=== PATIENT | male | born 1970 | race Asian ===

== ENCOUNTER 2023-02-10 08:51 | Outpatient (AMB) | payer OTHER, SELFPAY ==
--- NOTE | 2023-02-10 08:57 | A.OFFVIS_ITS ---
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 Messer who was accompanied by his significant other at today's visit. He has a past medical history of herpes and mixed hyperlipidemia. He presents to the office today as a new patient for low libido and erectile dysfunction. In discussion with the patient today reports to be doing and feeling well. He reports noting a decrease in libido over the last several years of his life. He reports to be going to therapy with his significant other to further assess if it is psychologically related to his low libido and erectile dysfunction. When asked he does report to have morning erections at times. He reports to be having issues with obtaining and maintaining erections. He states sometimes he is able to obtain an erection however there is no consistency to when he is able to. He reports having had annual blood work with his PCP at which time he was noted to have elevated cholesterol and has been working on lifestyle modifications to assist. He reports to be eating healthier and attempting to exercise/increase his activity daily. He brings with him today labs he had with PCP. 11/18/22 Testosteron--392, free testosterone 7.65 and SHBG--33.0. When asked patient does report to be snoring however he has never had a workup for sleep apnea. He does report at times feeling fatigued upon wakening. He otherwise denies any smoking history or illicit drug use. He does report to be drinking caffeine and tea throughout the day. He otherwise denies any urinary issues or concerns at this time. He denies urinary urgency, urinary frequency, incontinence, nocturia, hematuria, dysuria, foul smelling urine, changes to urinary stream, flank pain, fever, and or chills. When asked patient reports to be following up with PSAs in [place] is with PCP. He is happy with his current voiding parameters. [facility] Medical History (Updated 02/10/23 @ 19:53 by JEANMARIE Hamm) Erectile dysfunction Fasting hyperglycemia Mixed hyperlipidemia Review of Systems Const Reports as per HPI Eyes Reports no additional complaints ENT Reports no additional complaints Card Reports no additional complaints Resp Reports no additional complaints GI Reports no additional complaints Reports as per HPI Musc Reports no additional complaints Neuro Reports no additional complaints Psych Reports no additional complaints Endo Reports no additional complaints Issac/Lymph Reports no additional complaints Aller/Immun Reports as per HPI Physical Exam Const General: cooperative, healthy appearing, comfortable, no acute distress, well developed, alert and awake Orientation/consciousness: patient oriented x3 HEENT Head: Yes normal to inspection, Yes normocephalic and Yes atraumatic Ears: hearing grossly normal bilaterally Eyes General: appearance normal, both eyes and all related structures Neck Neck: Yes normal visual inspection and Yes trachea midline Chest Chest palpation & inspection: normal inspection of the chest Resp Effort & Inspection: normal respiratory effort and able to speak in complete sentences Cardio Rate: regular rate GI Inspection: Yes normal to inspection General: Yes no CVA tenderness Back/Spine/Pelvis Back: no CVA tenderness Skin General skin exam: no rashes or lesions noted Neuro General: patient oriented x3 Extrem General: Yes normal to inspection Psych Appearance: grossly normal and well kempt Mental Status: mental status grossly normal Speech and movement: Normal speech and movement present and Clear speech present Affect: normal affect Attitude: cooperative Thought process: Normal thought process present Thought content: Normal thought content present Insight: Good insight present (Psych) Judgement: Good judgement present (Psych) Results AMB Urinalysis, Automated UA Leukoctes 0 Mouna/uL Last Edit by Mandeep Pan on 02/10/23 09:12 UA Nitrite Last Edit by Mandeep Pan on 02/10/23 09:12 UA Urobilinogen 0.2 mg/dL Last Edit by Mandeep Pan on 02/10/23 09:12 UA Protein 15 mg/dL Last Edit by Mandeep Pan on 02/10/23 09:12 UA pH 6.0 Last Edit by Mandeep Pan on 02/10/23 09:12 UA Blood 0 Abe/uL Last Edit by Jaxonjessieivon Castrorohini on 02/10/23 09:12 UA Specific [place] 1.025 Last Edit by Jaxondominik Gloriarohini on 02/10/23 09:12 UA Ketone Last Edit by Jaxondominik Gloriarohini on 02/10/23 09:12 UA Bilirubin 0 mg/dL Last Edit by Jaxondominik Gloriarohini on 02/10/23 09:12 UA Glucose 0 mg/dL Last Edit by Jaxondominik Gloriarohini on 02/10/23 09:12 Results Reviewed Results Reviewed: Laboratory Last Values Urine pH (Auto) 6.0 02/10/23 08:58 Specific [place] (Auto) 1.025 02/10/23 08:58 Urine Protein (Auto) 15 mg/dL 02/10/23 08:58 Glucose (UA)(Auto) 0 mg/dL 02/10/23 08:58 Urine Blood (Auto) 0 Abe/uL 02/10/23 08:58 Urine Bilirubin (Auto) 0 mg/dL 02/10/23 08:58 Urine Urobilinogen (Auto) 0.2 mg/dL 02/10/23 08:58 Leukocyte Esterase (Auto) 0 Mouna/uL 02/10/23 08:58 Assessment & Plan Assessment & Plan (1) Snoring: Code(s): R06.83 - Snoring (2) Low libido: Code(s): R68.82 - Decreased libido (3) Erectile dysfunction: Code(s): N52.9 - Male erectile dysfunction, unspecified Plan In office urinalysis results reviewed with the patient and his significant other today; as noted above. Testosterone, free testosterone and SHBG appear within normal limits; as noted above Discussed at length lifestyle modifications to assist with low libido and erectile dysfunction the patient is experiencing; such as general exercise, pelvic floor exercises, healthy diet, and adequate sleep/good sleeping habits. Discuss trial low-dose 5 mg Cialis with p.r.n. on demand 1 hour prior to sexual activity. Discussed at length potential causes for low libido as well as erectile dysfunction. Patient reports to be happy with current voiding parameters. Discussed at length treatment options for erectile dysfunction. Will refer to sleep medicine to further assess for sleep apnea as patients significant other reports patient snores and patient reports at times fatigue upon wakening. Follow-up in 3 months; or sooner with any issues, concerns, and or questions. Orders: Orders AMB Urinalysis Automated Today Z13.9 - Encounter for screening, unspecified Referrals Sleep Medicine Referral R06.83 - Snoring Medications: New tadalafil (Cialis) [id number] [facility] [id number] 5 mg PO DAILY 90 days 90 tabs 3RF tadalafil (Cialis) administer approximately 30min before sexual activity; do not use more than 1 dose per 24hrs [id number] [facility] [id number] 20 mg PO DAILY PRN 20 tabs 3RF sexual activity Patient Instructions: The patient had an opportunity to ask questions regarding the treatment plan. All questions were answered. Physical exam, labs, and imaging were discussed and reviewed in detail. As well as risks, benefits, and discussion of treatment choices. No major barriers to understanding were identified. The patient expressed understanding and agreement with the above treatment plan. The patient was made aware they should contact our office by phone for worsening of their current condition, the appearance of new symptoms, or with any questions or concerns. Compliance is encouraged with any medications and follow up testing that is ordered. It is a privilege to be allowed the opportunity to participate in? your urological care.? Again, if you have any questions or concerns If you have any questions or concerns please do not hesitate to contact me. The office is [phone]. This note is constructed using voice recognition software. While every effort has been made to ensure accuracy chief medical officer errors may have been included. Yours sincerely, ENRIQUE Hamm Coding Level of Care Code New Pt Level 4 (03416) Diagnoses Snoring R06.83 Low libido R68.82 Erectile dysfunction N52.9
== END 2023-02-10 09:51 | disposition home or self-care (01) ==
PROVIDERS: PCP Internal Medicine; Referring Provider Internal Medicine; Visit Provider Nurse Practitioner Family
DX: R06.83 Snoring (principal); R68.82 Decreased libido; N52.9 Male erectile dysfunction, unspecified; Z13.9 Encounter for screening, unspecified
CPT/HCPCS: 99204

== ENCOUNTER → 2023-02-10 08:51 | Outpatient (BNVA) | payer OTHER, SELFPAY | PROVIDERS: PCP Internal Medicine; Referring Provider Internal Medicine; Visit Provider Nurse Practitioner Family | DX: N52.9 Male erectile dysfunction, unspecified (principal); R06.83 Snoring; R68.82 Decreased libido | CPT/HCPCS: 81003 ==

== ENCOUNTER 2023-04-22 08:05 | Outpatient (AMB) | payer OTHER, SELFPAY ==
--- NOTE | 2023-04-22 08:08 | MHC.OFFVIS ---
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 Pt report loud snoring, and hx of deviated septum. He had a septoplast done in 1995, but still snores loudly. Pt reports witnessed disrupted breathing and daytime sleepiness. Sleep questionnaire: Have you ever been diagnosed with a sleep disorder? No. Have you ever had a sleep study in the past? No. Have you ever been treated for a sleep disorder? No. Do you take medications for a sleep disorder? No. Do you snore? Yes. Do you wake up gasping at night? No Do you have episodes of apneas? No. If yes, are they witnessed? No. Do you have episodes of nocturnal chest pain or dyspnea? No. Do you have difficulty initiating sleep? No. Do you have difficulty maintaining sleep? No. Do you wake up tired? No. Do you have headaches upon awakening? No. Do you wake up with dry mouth or throat? No. He puts tape on his lip. Do you have GERD? Yes, occasionally. Do you have nocturia? No. Do you have nocturnal leg cramps? No. Do you have symptoms of restless legs? No. Do you act out your dreams? No. Sleep hygiene questionnaire: What is your usual sleep routine? Usual bedtime is at 2 am Usual wake up time is at 8 am. Do you take naps? No. Is your sleep environment cool, dark, and quiet? Yes. Do you exercise? Walking. Do you take caffeine or other stimulants? Coffee in the morning, green tea daily. Do you use electronics in bed? Yes, sometimes. What is your work schedule? 9 am to 6 pm. Hypersomnolence questionnaire: Do you have daytime tiredness or fatigue? Yes, occasionally. Do you easily fall asleep when inactive? No. Have you ever had episodes of sudden weakness? No. Have you ever had episodes of sudden weakness associated with strong emotions? No. PFSH Medical History (Updated 04/22/23 @ 08:33 by Basilia Santos CNP) Mixed hyperlipidemia Fasting hyperglycemia Erectile dysfunction Surgical History (Updated 04/22/23 @ 08:13 by Marissa Galdamez CMA) History of nasal surgery Family History (Updated 04/22/23 @ 08:15 by Marissa Galdamez CMA) Father Colon cancer Heart disease Mother Diabetes Social History (Updated 04/22/23 @ 08:16 by Marissa Galdamez CMA) Alcohol intake: current Alcohol intake frequency: holidays/special occasions only Patient Tobacco Use Status: Never used Tobacco Use of substances other than those prescribed or required for medical reasons: No Review of Systems Const All systems reviewed & are unremarkable except as noted in HPI and below ENT Reports Normal hearing present Neuro Reports Normal hearing present Physical Exam Vital Signs: Last Vital Signs Pulse 76 04/22/23 08:16 BP 112/66 04/22/23 08:16 Pulse Ox 96 04/22/23 08:16 Oxygen Delivery Method Room Air 04/22/23 08:16 BMI result Body Mass Index 26.6 Const General: cooperative Nutritional Appearance: overweight Orientation/consciousness: patient oriented x3 HEENT Throat: Yes other (mallampati grade 2) Neck Neck: Yes full ROM and Yes supple Resp Effort & Inspection: normal respiratory effort and able to speak in complete sentences Neuro General: patient oriented x3 and gait normal Cranial nerves: Yes Bilaterally intact EOM present, Yes Normal facial strength present, Yes Midline tongue present, Yes Symmetric palate elevation present, Yes Normal hearing present, Yes Ability to bilaterally rotate head present and Yes Ability to bilaterally elevate shoulders present Cognition (Neuro): normal cognition Gait exam (Neuro): Normal gait present Motor exam (neuro): 5/5 motor strength present throughout, Pronator motor function not present and no tremor noted Psych Appearance: grossly normal Mental Status: mental status grossly normal Speech and movement: Normal speech and movement present Affect: normal affect Attitude: cooperative Assessment & Plan Assessment & Plan (1) Daytime sleepiness: Code(s): R40.0 - Somnolence (2) Snoring: Code(s): R06.83 - Snoring Plan Pt is advised to undergo home sleep study to assess for sleep apnea. Will f/u with pt after study to discuss results and appropriate treatment options. Sleep hygiene education provided. Pt to call with any worsening concerns or questions. Orders: Orders RT home sleep study 04/22/23 R06.83 - Snoring, R40.0 - Somnolence Coding Level of Care Code New Pt Level 3 (27197) Diagnoses Daytime sleepiness R40.0 Snoring R06.83
[2023-04-22 08:16] VITALS: BP 112/66; PULSE 76; O2SAT 96; BMI 26.6
== END 2023-04-22 08:41 | disposition home or self-care (01) ==
PROVIDERS: PCP Internal Medicine; Visit Provider Nurse Practitioner Family
DX: R40.0 Somnolence (principal); R06.83 Snoring
CPT/HCPCS: 99203

== ENCOUNTER → 2023-04-22 08:05 | Outpatient (BNVA) | payer OTHER, SELFPAY | PROVIDERS: PCP Internal Medicine; Visit Provider Nurse Practitioner Family ==

== ENCOUNTER 2023-05-14 08:32 | Outpatient (AMB) | payer OTHER, SELFPAY ==
--- NOTE | 2023-05-14 08:33 | MHC.OFFVIS ---
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 Messer. He has a past medical history of herpes and mixed hyperlipidemia. He presents to the office today for follow-up of his low libido and erectile dysfunction. Of note, patient was seen approximately 3 months ago at which time he was started on low-dose Cialis and as needed p.r.n. prior to sexual activity. In discussion with the patient today he reports noting somewhat improvement in libido and erections. He reports feeling morning erections are improving and feels he is able to maintain erections during sexual activity. He discusses following up with his PCP regarding elevated LDL and HDL levels. He discusses over the last 3 months he has been eating healthier and attempting to incorporate exercises into his daily routine. He discusses his recent purposal to he is caro on 04/26 at 11:11pm in [facility] [employer] [facility]. Previous workup has included 11/18/22 Testosterone--392, free testosterone 7.65 and SHBG--33.0. Patient reports to be following up regarding snoring for further assessment evaluation of sleep apnea. He does report at times feeling fatigued upon wakening. He otherwise denies any smoking history or illicit drug use. He does report to be drinking caffeine and tea throughout the day. He otherwise denies any urinary issues or concerns at this time. He denies urinary urgency, urinary frequency, incontinence, nocturia, hematuria, dysuria, foul smelling urine, changes to urinary stream, flank pain, fever, and or chills. He is happy with his current voiding parameters. He follows up with his PSAs and BERTHA is with PCP per patient. [facility] Medical History Mixed hyperlipidemia Fasting hyperglycemia Erectile dysfunction Surgical History History of nasal surgery Family History Father Colon cancer Heart disease Mother Diabetes Social History Alcohol intake: current Alcohol intake frequency: holidays/special occasions only Patient Tobacco Use Status: Never used Tobacco Review of Systems Const Reports as per HPI Eyes Reports no additional complaints ENT Reports no additional complaints Card Reports no additional complaints Resp Reports no additional complaints GI Reports no additional complaints Reports as per HPI Musc Reports no additional complaints Neuro Reports no additional complaints Psych Reports no additional complaints Endo Reports no additional complaints Issac/Lymph Reports no additional complaints Aller/Immun Reports as per HPI Physical Exam Const General: cooperative, healthy appearing, comfortable, no acute distress, well developed, alert and awake Orientation/consciousness: patient oriented x3 HEENT Head: Yes normal to inspection, Yes normocephalic and Yes atraumatic Ears: hearing grossly normal bilaterally Eyes General: appearance normal, both eyes and all related structures Neck Neck: Yes normal visual inspection and Yes trachea midline Chest Chest palpation & inspection: normal inspection of the chest Resp Effort & Inspection: normal respiratory effort and able to speak in complete sentences Cardio Rate: regular rate GI Inspection: Yes normal to inspection General: Yes no CVA tenderness Back/Spine/Pelvis Back: no CVA tenderness Skin General skin exam: no rashes or lesions noted Neuro General: patient oriented x3 Extrem General: Yes normal to inspection Psych Appearance: grossly normal and well kempt Mental Status: mental status grossly normal Speech and movement: Normal speech and movement present and Clear speech present Affect: normal affect Attitude: cooperative Thought process: Normal thought process present Thought content: Normal thought content present Insight: Good insight present (Psych) Judgement: Good judgement present (Psych) Results AMB Urinalysis, Automated UA Leukoctes 0 Mouna/uL Last Edit by Mandeep Pan on 05/14/23 08:48 UA Nitrite Negative Last Edit by Mandeep Pan on 05/14/23 08:48 UA Urobilinogen 0.2 mg/dL Last Edit by Mandeep Pan on 05/14/23 08:48 UA Protein 0 mg/dL Last Edit by Mandeep Pan on 05/14/23 08:48 UA pH 6.0 Last Edit by Mandeep Pan on 05/14/23 08:48 UA Blood 10 Abe/uL Last Edit by Mandeep Pan on 05/14/23 08:48 UA Specific [place] 1.025 Last Edit by Mandeep Pan on 05/14/23 08:48 UA Ketone Negative Last Edit by Mandeep Pan on 05/14/23 08:48 UA Bilirubin 0 mg/dL Last Edit by Mandeep Pan on 05/14/23 08:48 UA Glucose 0 mg/dL Last Edit by Mandeep Pan on 05/14/23 08:48 Results Reviewed Results Reviewed: Laboratory Last Values Urine pH (Auto) 6.0 05/14/23 08:37 Specific [place] (Auto) 1.025 05/14/23 08:37 Urine Protein (Auto) 0 mg/dL 05/14/23 08:37 Glucose (UA)(Auto) 0 mg/dL 05/14/23 08:37 Urine Ketones (Auto) Negative 05/14/23 08:37 Urine Blood (Auto) 10 Abe/uL 05/14/23 08:37 Urine Nitrite (Auto) Negative 05/14/23 08:37 Urine Bilirubin (Auto) 0 mg/dL 05/14/23 08:37 Urine Urobilinogen (Auto) 0.2 mg/dL 05/14/23 08:37 Leukocyte Esterase (Auto) 0 Mouna/uL 05/14/23 08:37 Assessment & Plan Assessment & Plan (1) Erectile dysfunction: Code(s): N52.9 - Male erectile dysfunction, unspecified Plan In office urinalysis results reviewed with the patient today. Continue with 5 mg of Cialis daily as well as p.r.n. dosing prior to sexual activity. Will obtain redraw of testosterone free and total in 3 months. Continue to follow-up as planned for sleep study Discussed at length lifestyle modifications to assist with ED Discussed possible vacuum pump and penile ring; information provided Patient denies any bothersome urinary issues He is happy with current voiding parameters Follow-up in 3 months with lab to be completed prior; or sooner with any issues, concerns, and or questions Orders: Orders AMB Urinalysis Automated Today Z13.9 - Encounter for screening, unspecified Testosterone, Free/Total 3 Months N52.9 - Male erectile dysfunction, unspecified, R68.82 - Decreased libido Medications: Refilled tadalafil (Cialis) administer approximately 30min before sexual activity; do not use more than 1 dose per 24hrs [id number] [facility] [id number] Member [id number] 20 mg PO DAILY PRN 20 tabs 3RF sexual activity Patient Instructions: The patient had an opportunity to ask questions regarding the treatment plan. All questions were answered. Physical exam, labs, and imaging were discussed and reviewed in detail. As well as risks, benefits, and discussion of treatment choices. No major barriers to understanding were identified. The patient expressed understanding and agreement with the above treatment plan. The patient was made aware they should contact our office by phone for worsening of their current condition, the appearance of new symptoms, or with any questions or concerns. Compliance is encouraged with any medications and follow up testing that is ordered. It is a privilege to be allowed the opportunity to participate in? your urological care.? Again, if you have any questions or concerns If you have any questions or concerns please do not hesitate to contact me. The office is [phone]. This note is constructed using voice recognition software. While every effort has been made to ensure accuracy supervisor photoengraving errors may have been included. Yours sincerely, ENRIQUE Hamm Coding Level of Care Code Est Pt Level 3 (28828) Diagnoses Erectile dysfunction N52.9
== END 2023-05-14 09:26 | disposition home or self-care (01) ==
PROVIDERS: PCP Internal Medicine; Visit Provider Nurse Practitioner Family
DX: N52.9 Male erectile dysfunction, unspecified (principal); Z13.9 Encounter for screening, unspecified
CPT/HCPCS: 99213

== ENCOUNTER → 2023-05-14 08:32 | Outpatient (BNVA) | payer OTHER, SELFPAY | PROVIDERS: PCP Internal Medicine; Visit Provider Nurse Practitioner Family | DX: N52.9 Male erectile dysfunction, unspecified (principal); Z79.899 Other long term (current) drug therapy | CPT/HCPCS: 81003 ==

== ENCOUNTER → 2023-08-12 11:04 | Outpatient (REF) | payer OTHER, SELFPAY | LOC: HO.SL 11:04 | PROVIDERS: Visit Provider Nurse Practitioner Family | DX: G47.33 Obstructive sleep apnea (adult) (pediatric) (principal); R40.0 Somnolence; R06.83 Snoring | CPT/HCPCS: 95806 ==

== ENCOUNTER → 2023-08-12 11:23 | Outpatient (BNV) | payer OTHER, SELFPAY | PROVIDERS: Visit Provider Psychiatry & Neurology Neurology | DX: G47.33 Obstructive sleep apnea (adult) (pediatric) (principal) | CPT/HCPCS: 95806 ==

== ENCOUNTER 2023-09-11 14:09 | Outpatient (AMB) | payer OTHER, SELFPAY ==
--- NOTE | 2023-09-11 14:16 | A.OFFVIS_ITS ---
Intake Intake Visit Reasons: 3m/testo(set) Intake Note: Patient presents today for a follow up on TESTO Meds- Tadalafil Allergies to Antibiotic- Sulfa Blood Thinner- None Route Driver Coin Machines Required: No Accompanied by: Self / Same As Patient Allergies Sulfa Drugs Allergy (Uncoded 09/11/23 21:51) unknown vicodan Allergy (Uncoded 09/11/23 21:51) Unknown Medication List - Last Reconciled 09/11/23 by MARYCHUY Hamm- tadalafil (Cialis) 5 mg PO DAILY 90 days tadalafil (Cialis) 20 mg PO DAILY PRN valacyclovir 1,000 mg PO BID HPI HPI Comments History of Present Illness Details Breezy is a very pleasant 53-year-old male patient of Dr. Messer. He has a past medical history of herpes and mixed hyperlipidemia. He presents to the office today for follow-up of his low libido and erectile dysfunction. Recent labs reviewed with the patient today as noted and trended below. Testosterone: 12/06--392, 08/09--401 Free testosterone 12/06--7.65, 08/09--8.60 SHGB 12/06--33.0, 08/09--26.9 In discussion with the patient today he reports noting somewhat improvement in libido and erections. He reports feeling morning erections are improving and feels he is able to maintain erections during sexual activity. He discusses attempting to increase his daily activity and eating healthier. However he does struggle with getting adequate sleep. He discusses his fiancee and him undergoing therapy together and feels this has also been helpful. He otherwise denies any bothersome urinary issues. He denies urinary urgency, urinary frequency, incontinence, nocturia, hematuria, dysuria, foul smelling urine, changes to urinary stream, flank pain, fever, and or chills. He is happy with his current voiding parameters. He follows up with his PSAs and BERTHA is with PCP per patient. He discusses having had sleep study and will be following up for CPAP as he has been diagnosed with sleep apnea. He otherwise offers no other issues or concerns at this time. COUNTS INCLUDE 234 BEDS AT THE [facility] Medical History Mixed hyperlipidemia Fasting hyperglycemia Erectile dysfunction Surgical History History of nasal surgery Family History Father Colon cancer Heart disease Mother Diabetes Social History Alcohol intake: current Alcohol intake frequency: holidays/special occasions only Patient Tobacco Use Status: Never used Tobacco Review of Systems Const Reports as per HPI Eyes Reports no additional complaints ENT Reports no additional complaints Card Reports no additional complaints Resp Reports no additional complaints GI Reports no additional complaints Reports as per HPI Musc Reports no additional complaints Neuro Reports no additional complaints Psych Reports no additional complaints Endo Reports no additional complaints Issac/Lymph Reports no additional complaints Aller/Immun Reports as per HPI Physical Exam Const General: cooperative, healthy appearing, comfortable, no acute distress, well developed, alert and awake Orientation/consciousness: patient oriented x3 HEENT Head: Yes normal to inspection, Yes normocephalic and Yes atraumatic Ears: hearing grossly normal bilaterally Eyes General: appearance normal, both eyes and all related structures Neck Neck: Yes normal visual inspection and Yes trachea midline Chest Chest palpation & inspection: normal inspection of the chest Resp Effort & Inspection: normal respiratory effort and able to speak in complete sentences Cardio Rate: regular rate GI Inspection: Yes normal to inspection General: Yes no CVA tenderness Back/Spine/Pelvis Back: no CVA tenderness Skin General skin exam: no rashes or lesions noted Neuro General: patient oriented x3 Extrem General: Yes normal to inspection Psych Appearance: grossly normal and well kempt Mental Status: mental status grossly normal Speech and movement: Normal speech and movement present and Clear speech present Affect: normal affect Attitude: cooperative Thought process: Normal thought process present Thought content: Normal thought content present Insight: Good insight present (Psych) Judgement: Good judgement present (Psych) Results AMB Urinalysis, Automated UA Leukoctes 0 Mouna/uL Last Edit by Dominique Camp CMA on 09/11/23 14 :27 UA Nitrite Negative [facility] on 09/11/23 14: 27 UA Urobilinogen 0.2 mg/dL Last Edit by Dominique Campveena Camp [facility] on 4 14:27 UA Protein 15 mg/dL Last Edit [facility] on 09/11/23 14:2 7 UA pH 6.0 Last Edit [facility] [place], [facility] on 09/11/23 14:27 UA Blood 0 Abe/uL Last Edit [facility], [facility] on 09/11/23 14:27 UA Specific [place] 1.025 Last Edit by Dominique Campveena Camp [facility] on 14:27 UA Ketone Negative Last Edit [facility] on 09/11/23 14:2 7 UA Bilirubin 0 mg/dL Last Edit [facility] [place] [facility] on 09/11/23 14: 27 UA Glucose 0 mg/dL Last Edit [facility], [facility] on 09/11/23 14:27 Results Reviewed Results Reviewed: Laboratory Last Values Urine pH (Auto) 6.0 09/11/23 14:26 Specific [place] (Auto) 1.025 09/11/23 14:26 Urine Protein (Auto) 15 mg/dL 09/11/23 14:26 Glucose (UA)(Auto) 0 mg/dL 09/11/23 14:26 Urine Ketones (Auto) Negative 09/11/23 14:26 Urine Blood (Auto) 0 Abe/uL 09/11/23 14:26 Urine Nitrite (Auto) Negative 09/11/23 14:26 Urine Bilirubin (Auto) 0 mg/dL 09/11/23 14:26 Urine Urobilinogen (Auto) 0.2 mg/dL 09/11/23 14:26 Leukocyte Esterase (Auto) 0 Mouna/uL 09/11/23 14:26 Assessment & Plan Assessment & Plan (1) Erectile dysfunction: Code(s): N52.9 - Male erectile dysfunction, unspecified Plan In office urinalysis results reviewed with the patient today. Continue with 5 mg of Cialis daily as well as p.r.n. dosing prior to sexual activity. Will obtain redraw of testosterone free and total in 6 months. Discussed importance of compliance with CPAP for sleep apnea in relation to ED and low libido as well as overall health and well-being. Discussed at length lifestyle modifications to assist with ED Discussed possible vacuum pump and penile ring; information provided Patient denies any bothersome urinary issues He is happy with current voiding parameters Follow-up in 6 months with lab to be completed prior; or sooner with any issues, concerns, and or questions Orders: Orders AMB Urinalysis Automated Today R33.9 - Retention of urine, unspecified Prostate Specific Antigen 6 Months N40.0 - Benign prostatic hyperplasia without lower urinary tract symptoms Testosterone, Free/Total 6 Months N52.9 - Male erectile dysfunction, unspecified, R68.82 - Decreased libido Medications: Refilled tadalafil (Cialis) [id number] [facility]33 Member [id number] 5 mg PO DAILY 90 tabs 3RF 90 days tadalafil (Cialis) administer approximately 30min before sexual activity; do not use more than 1 dose per 24hrs [id number] [facility]33 Member [id number] 20 mg PO DAILY PRN 20 tabs 3RF sexual activity Patient Instructions: The patient had an opportunity to ask questions regarding the treatment plan. All questions were answered. Physical exam, labs, and imaging were discussed and reviewed in detail. As well as risks, benefits, and discussion of treatment choices. No major barriers to understanding were identified. The patient expressed understanding and agreement with the above treatment plan. The patient was made aware they should contact our office by phone for worsening of their current condition, the appearance of new symptoms, or with any questions or concerns. Compliance is encouraged with any medications and follow up testing that is ordered. It is a privilege to be allowed the opportunity to participate in? your urological care.? Again, if you have any questions or concerns If you have any questions or concerns please do not hesitate to contact me. The office is [phone]. This note is constructed using voice recognition software. While every effort has been made to ensure accuracy linux unix system administrator errors may have been included. Yours sincerely, ENRIQUE Hamm Coding Level of Care Code Est Pt Level 4 (51076) Diagnoses Erectile dysfunction N52.9 Time Spent (min) 30
== END 2023-09-11 14:59 | disposition home or self-care (01) ==
PROVIDERS: PCP Internal Medicine; Visit Provider Nurse Practitioner Family
DX: N52.9 Male erectile dysfunction, unspecified (principal)
CPT/HCPCS: 99214

== ENCOUNTER → 2023-09-11 14:09 | Outpatient (BNVA) | payer OTHER, SELFPAY | PROVIDERS: PCP Internal Medicine; Visit Provider Nurse Practitioner Family | DX: N52.9 Male erectile dysfunction, unspecified (principal); R33.9 Retention of urine, unspecified | CPT/HCPCS: 81003 ==

== ENCOUNTER 2024-03-15 09:42 | Outpatient (REF) | payer OTHER, SELFPAY ==
[2024-03-15 11:05] LABS: Prostate Specific Antigen 1.73 ng/mL (<0.05-4.0)
[2024-03-19 16:33] LABS: Testosterone, Free 94.7 pg/mL (35.0-155.0); Testosterone, Total 469 ng/dL (250-1100)
== END 2024-03-15 09:43 | disposition home or self-care (01) ==
LOC: HO.LAB 09:42
PROVIDERS: PCP Internal Medicine; Visit Provider Nurse Practitioner Family
DX: N40.0 Benign prostatic hyperplasia without lower urinary tract symptoms (principal); R68.82 Decreased libido; N52.9 Male erectile dysfunction, unspecified; Z12.5 Encounter for screening for malignant neoplasm of prostate
CPT/HCPCS: 36415; 84153; 84402; 84403

== ENCOUNTER 2024-05-04 15:12 | Outpatient (AMB) | payer OTHER, SELFPAY ==
--- NOTE | 2024-05-04 15:13 | A.OFFVIS_ITS ---
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 Messer. He has a past medical history of herpes and mixed hyperlipidemia. He presents to the office today for follow-up of his low libido and erectile dysfunction. Recent labs reviewed with the patient today as noted and trended below. Testosterone: 12/06 392, 08/09 401, 03/09 469 Free testosterone 12/06 7.65, 08/09 8.60, 03/09 94.7 SHGB 12/06 33.0, 08/09 26.9 PSA: 03/09 1.7 In discussion with the patient today he reports noting improvement in libido and erections. He reports feeling morning erections are improving and feels he is able to maintain erections during sexual activity. He discusses attempting to increase his daily activity and eating healthier. He discusses walking 60-90 minutes multiple times per week. He otherwise denies any bothersome urinary issues. He denies urinary urgency, urinary frequency, incontinence, nocturia, hematuria, dysuria, foul smelling urine, changes to urinary stream, flank pain, fever, and or chills. He is happy with his current voiding parameters. He discusses having had sleep study and will be following up for CPAP as he has been diagnosed with sleep apnea. He otherwise offers no other issues or concerns at this time. [facility] Medical History Mixed hyperlipidemia Fasting hyperglycemia Erectile dysfunction Surgical History History of nasal surgery Family History Father Colon cancer Heart disease Mother Diabetes Social History Alcohol intake: current Alcohol intake frequency: holidays/special occasions only Patient Tobacco Use Status: Never used Tobacco Review of Systems Const Reports as per HPI Eyes Reports no additional complaints ENT Reports no additional complaints Card Reports no additional complaints Resp Reports no additional complaints GI Reports no additional complaints Reports as per HPI Musc Reports no additional complaints Neuro Reports no additional complaints Psych Reports no additional complaints Endo Reports no additional complaints Issac/Lymph Reports no additional complaints Aller/Immun Reports as per HPI Physical Exam Const General: cooperative, healthy appearing, comfortable, no acute distress, well developed, alert and awake Orientation/consciousness: patient oriented x3 HEENT Head: Yes normal to inspection, Yes normocephalic and Yes atraumatic Ears: hearing grossly normal bilaterally Eyes General: appearance normal, both eyes and all related structures Neck Neck: Yes normal visual inspection and Yes trachea midline Chest Chest palpation & inspection: normal inspection of the chest Resp Effort & Inspection: normal respiratory effort and able to speak in complete sentences Cardio Rate: regular rate GI Inspection: Yes normal to inspection General: Yes no CVA tenderness Back/Spine/Pelvis Back: no CVA tenderness Skin General skin exam: no rashes or lesions noted Neuro General: patient oriented x3 Extrem General: Yes normal to inspection Psych Appearance: grossly normal and well kempt Mental Status: mental status grossly normal Speech and movement: Normal speech and movement present and Clear speech present Affect: normal affect Attitude: cooperative Thought process: Normal thought process present Thought content: Normal thought content present Insight: Fair insight present (Psych) Judgement: Fair judgement present (Psych) Results AMB Urinalysis, Automated UA Leukoctes 0 Mouna/uL Last Edit by Mandeep Pan on 05/04/24 15:33 UA Nitrite Last Edit by Mandeep Pan on 05/04/24 15:33 UA Urobilinogen 0.2 mg/dL Last Edit by Mandeep Pan on 05/04/24 15:33 UA Protein 15 mg/dL Last Edit by Mandeep Pan on 05/04/24 15:33 UA pH 6.0 Last Edit by Mandeep Pan on 05/04/24 15:33 UA Blood 0 Abe/uL Last Edit by Mandeep Pan on 05/04/24 15:33 UA Specific [place] 1.025 Last Edit by Mandeep Pan on 05/04/24 15:33 UA Ketone Last Edit by Mandeep Pan on 05/04/24 15:33 UA Bilirubin 0 mg/dL Last Edit by Mandeep Pan on 05/04/24 15:33 UA Glucose 0 mg/dL Last Edit by Mandeep Pan on 05/04/24 15:33 Results Reviewed Results Reviewed: Laboratory Last Values Urine pH (Auto) 6.0 05/04/24 15:30 Specific [place] (Auto) 1.025 05/04/24 15:30 Urine Protein (Auto) 15 mg/dL 05/04/24 15:30 Glucose (UA)(Auto) 0 mg/dL 05/04/24 15:30 Urine Blood (Auto) 0 Abe/uL 05/04/24 15:30 Urine Bilirubin (Auto) 0 mg/dL 05/04/24 15:30 Urine Urobilinogen (Auto) 0.2 mg/dL 05/04/24 15:30 Leukocyte Esterase (Auto) 0 Mouna/uL 05/04/24 15:30 Assessment & Plan Assessment & Plan (1) Erectile dysfunction: Code(s): N52.9 - Male erectile dysfunction, unspecified Category: Medical Plan In office urinalysis results reviewed with the patient today. Continue with 5 mg of Cialis daily as well as p.r.n. dosing prior to sexual activity; refill provided. Discussed importance of compliance with CPAP for sleep apnea in relation to ED and low libido as well as overall health and well-being. Discussed at length lifestyle modifications to assist with ED Recent labs reviewed with the patient today; as noted above. Patient denies any bothersome urinary issues. He is happy with current voiding parameters. Follow-up in 6 months with lab to be completed prior; or sooner with any issues, concerns, and or questions. Orders: Orders AMB Urinalysis Automated Today Z13.9 - Encounter for screening, unspecified Medications: Refilled tadalafil (Cialis) administer approximately 30min before sexual activity; do not use more than 1 dose per 24hrs [id number] [id number] Member [id number] 20 mg PO DAILY PRN 20 tabs 3RF sexual activity Patient Instructions: The patient had an opportunity to ask questions regarding the treatment plan. All questions were answered. Physical exam, labs, and imaging were discussed and reviewed in detail. As well as risks, benefits, and discussion of treatment choices. No major barriers to understanding were identified. The patient expressed understanding and agreement with the above treatment plan. The patient was made aware they should contact our office by phone for worsening of their current condition, the appearance of new symptoms, or with any questions or concerns. Compliance is encouraged with any medications and follow up testing that is ordered. It is a privilege to be allowed the opportunity to participate in? your urological care.? Again, if you have any questions or concerns If you have any questions or concerns please do not hesitate to contact me. The office is [phone]. This note is constructed using voice recognition software. While every effort has been made to ensure accuracy home school teacher errors may have been included. Yours sincerely, ENRIQUE Hamm Coding Level of Care Code Est Pt Level 3 (13060) Diagnoses Erectile dysfunction N52.9
== END 2024-05-04 15:35 | disposition home or self-care (01) ==
PROVIDERS: PCP Internal Medicine; Visit Provider Nurse Practitioner Family
DX: Z13.9 Encounter for screening, unspecified (principal); N52.9 Male erectile dysfunction, unspecified
CPT/HCPCS: 99213

== ENCOUNTER → 2024-05-04 15:12 | Outpatient (BNVA) | payer OTHER, SELFPAY | PROVIDERS: PCP Internal Medicine; Visit Provider Nurse Practitioner Family | DX: N52.9 Male erectile dysfunction, unspecified (principal); Z79.899 Other long term (current) drug therapy | CPT/HCPCS: 81003 ==

== ENCOUNTER 2024-12-23 15:34 | Outpatient (AMB) | payer OTHER, SELFPAY ==
--- NOTE | 2024-12-23 15:36 | A.OFFVIS_ITS ---
Intake Visit Reasons: Follow up Intake Note: Patient presents today for follow up on: testosterone labs, low libido, and erectile dysfunction Testosterone: 378 Free Testosterone: 6.0 Meds- Tadalafil Allergies to Antibiotic- Sulfa Blood Thinner- None Visual Inspector Required: No Accompanied by: Self / Same As Patient Allergies Sulfa Drugs Allergy (Uncoded 05/04/24 15:38) unknown vicodan Allergy (Uncoded 05/04/24 15:38) Unknown Medication List - Last Reconciled 12/23/24 by MARYCHUY Hamm-ROSIE tadalafil (Cialis) 5 mg PO DAILY 90 days tadalafil (Cialis) 20 mg PO DAILY PRN valacyclovir 1,000 mg PO BID HPI Comments Details: Breezy is a very pleasant 54-year-old male patient of Dr. Messer. He has a past medical history of herpes, sleep apnea, and mixed hyperlipidemia. He presents to the office today for follow-up of his low libido and erectile dysfunction. Recent labs reviewed with the patient today as noted and trended below. Testosterone: 12/06 392, 08/09 401, 03/09 469, 01/07 378.9 Free testosterone 12/06 7.65, 08/09 8.60, 03/09 94.7 SHGB 12/06 33.0, 08/09 26.9 PSA: 03/09 1.7 In discussion with the patient today he reports noting improvement in libido and erections. He reports feeling morning erections are improving and feels he is a ble to maintain erections during sexual activity. He discusses attempting to increase his daily activity and eating healthier. He discusses walking multiple times per week. He otherwise denies any bothersome urinary issues. He denies urinary urgency, urinary frequency, incontinence, nocturia, hematuria, dysuria, foul smelling urine, changes to urinary stream, flank pain, fever, and or chills. He is happy with his current voiding parameters. He otherwise offers no other issues or concerns at this time. [facility] Medical History Mixed hyperlipidemia Fasting hyperglycemia Erectile dysfunction Surgical History History of nasal surgery Family History Father Colon cancer Heart disease Mother Diabetes Social History Alcohol intake: current Alcohol intake frequency: holidays/special occasions only Patient Tobacco Use Status: Never used Tobacco Review of Systems Const All systems reviewed & are unremarkable except as noted in HPI and below Physical Exam Const General: cooperative, healthy appearing, comfortable, no acute distress, well developed, alert and awake Orientation/consciousness: patient oriented x3 Limitations: no limitations HEENT Head: Yes normal to inspection, Yes normocephalic and Yes atraumatic Ears: hearing grossly normal bilaterally Eyes General: appearance normal, both eyes and all related structures Neck Neck: Yes normal visual inspection and Yes trachea midline Chest Chest palpation & inspection: normal inspection of the chest Resp Effort & Inspection: normal respiratory effort and able to speak in complete sentences Cardio Rate: regular rate GI Inspection: Yes normal to inspection General: Yes no CVA tenderness Back/Spine/Pelvis Back: no CVA tenderness Skin General skin exam: no rashes or lesions noted Neuro General: patient oriented x3 Extrem General: Yes normal to inspection Psych Appearance: grossly normal and well kempt Mental Status: mental status grossly normal Speech and movement: Normal speech and movement present and Clear speech present Affect: normal affect Attitude: cooperative Thought process: Normal thought process present Thought content: Normal thought content present Insight: Fair insight present (Psych) Judgement: Fair judgement present (Psych) Results AMB Urinalysis, Automated UA Leukoctes 15 Mouna/uL Last Edit by ANSON Woods on 12/23/24 16:06 UA Nitrite Last Edit by ANSON Woods on 12/23/24 16:06 UA Urobilinogen 0.2 mg/dL Last Edit by ANSON Woods on 12/23/24 16:0 6 UA Protein 15 mg/dL Last Edit by ANSON Woods on 12/23/24 16:06 UA pH 8.0 Last Edit by Mandeep Pan, [facility] on 12/23/24 16:06 UA Blood 0 Abe/uL Last Edit by Mandeep Pan, [facility] on 12/23/24 16:06 UA Specific [place] 1.010 Last Edit by Mandeep Pan, [facility] on 12/23/24 16: 06 UA Ketone Last Edit by Mandeep Pan, [facility] on 12/23/24 16:06 UA Bilirubin 0 mg/dL Last Edit by Mandeep Pan, [facility] on 12/23/24 16:06 UA Glucose 0 mg/dL Last Edit by Mandeep Pan, [facility] on 12/23/24 16:06 Results Reviewed Results Reviewed: Laboratory Last Values Urine pH (Auto) 8.0 12/23/24 16:04 Specific [place] (Auto) 1.010 12/23/24 16:04 Urine Protein (Auto) 15 mg/dL 12/23/24 16:04 Glucose (UA)(Auto) 0 mg/dL 12/23/24 16:04 Urine Blood (Auto) 0 Abe/uL 12/23/24 16:04 Urine Bilirubin (Auto) 0 mg/dL 12/23/24 16:04 Urine Urobilinogen (Auto) 0.2 mg/dL 12/23/24 16:04 Leukocyte Esterase (Auto) 15 Mouna/uL 12/23/24 16:04 Assessment & Plan Assessment & Plan (1) Erectile dysfunction: Code(s): N52.9 - Male erectile dysfunction, unspecified Category: Medical (2) Low libido: Code(s): R68.82 - Decreased libido Category: Medical Plan In office urinalysis results reviewed with the patient today. Continue with 5 mg of Cialis daily as well as p.r.n. dosing prior to sexual activity; refill provided. Discussed importance of compliance with CPAP for sleep apnea in relation to ED and low libido as well as overall health and well-being. Discussed at length lifestyle modifications to assist with ED Recent labs reviewed with the patient today; as noted above. Patient denies any bothersome urinary issues. He is happy with current voiding parameters. Will obtain PSA and testosterone in 6 months; we discussed importance of importance of obtaining labs 2 hours upon wakening for testosterone lab work. Follow-up in 6 months with lab to be completed prior; or sooner with any issues, concerns, and or questions. Orders: Orders Prostate Specific Antigen 6 Months N52.9 - Male erectile dysfunction, unspecified, R68.82 - Decreased libido AMB Urinalysis Automated Today Z13.9 - Encounter for screening, unspecified Testosterone, Total 6 Months C61 - Malignant neoplasm of prostate Medications: [id number] [id number] 5 mg PO DAILY 90 tabs 3RF 90 days tadalafil (Cialis) administer approximately 30min before sexual activity; do not use more than 1 dose per 24hrs [id number] [facility] [id number] 20 mg PO DAILY PRN 20 tabs 3RF sexual activity Patient Instructions: The patient had an opportunity to ask questions regarding the treatment plan. All questions were answered. Physical exam, labs, and imaging were discussed and reviewed in detail. As well as risks, benefits, and discussion of treatment choices. No major barriers to understanding were identified. The patient expressed understanding and agreement with the above treatment plan. The patient was made aware they should contact our office by phone for worsening of their current condition, the appearance of new symptoms, or with any questions or concerns. Compliance is encouraged with any medications and follow up testing that is ordered. It is a privilege to be allowed the opportunity to participate in? your urological care.? Again, if you have any questions or concerns If you have any questions or concerns please do not hesitate to contact me. The office is [phone]. This note is constructed using voice recognition software. While every effort has been made to ensure accuracy wellness consultant errors may have been included. Yours sincerely, ENRIQUE Hamm Coding Level of Care Code Est Pt Level 3 (63573) Diagnoses Erectile dysfunction N52.9 Low libido R68.82
--- OUTSIDE RECORDS SUMMARY | 2024-12-23 15:38 | XMS_ITS | Data Portability ---
Author Organization [place] [facility], autoContract Address [address] [place] [address] Assessment Encounter Date Assessment Date Assessment LastModified by Organization Details LastModified Time 06/25/2021 06/25/2021 I discussed this telehealth visit with patient and received their verbal consent to proceed with this visit over the audio and video platform [employer]. This visit was initiated by the patient. The current location of this patient is at his girlfriend's residence in [place]. A total of 20 minutes was spent at this visit of which at least 50% was spent in direct patient contact [email or web address] Not available 06/26/2021 00:55:49 05/31/2022 05/31/2022 I discussed this telehealth visit with patient and received their verbal consent to proceed with this visit over the audio and video platform [employer]. This visit was initiated by the patient. The current location of this patient is at their home. A total of 25 minutes was spent at this visit of which at least 50% was spent in direct patient contact [email or web address] Not available 05/31/2022 17:59:58 Plan of Treatment Reminders Order Date Submit Date Provider Last Modified By Organization Details Last Modified Time Details Appointments None recorded. Lab CMP, serum or plasma 2021 022 [facility], [address] [place], [address], 08:12:59 lipid panel, serum 2021 022 [facility], [address] [place], [address], 08:13:00 CBC w/ auto diff 2021 [facility], [address] [place], [address], 08:12:57 TSH, ultra-sensi tive, serum 2021 [facility], [address] [place], [address], 08:13:01 Referral None recorded. Procedures None recorded. Surgeries None recorded. Imaging None recorded. Medication Orders Paxlovid 300 mg (150 mg x 2)-100 mg tablets in a dose pack 2021 [facility][id number], [address] [place] [address], [address], 17:57:54 valacyclovi r 1 gram tablet 2021 [id number] [address] [place] [address], [address], 13:39:03 valacyclovi r 1 gram tablet 2021 [facility] [id number], [address], [place], [id number], 13:39:21 Patient TargetsNo targets recorded. Patient Instructions Encounter Date Encounter Id Patient Instructions Last Modified By Organization Details Last Modified Time 02/16/2021 [id number] Christian presents to day because his current sexual partner was recently diagnosed with HPV on a pap smear. He received the HPV vaccines. Has 1 more shot due. Insurance wouldn't cover the vaccine as prevention, but would cover it for a condition. He'd like it re-submitted for billing considered scientifically recommended for his Scientific evidence that the medication is effective for his condition. Basically since there's no test for HPV for men he should prevent with the vaccine. Maybe use an Exposure code. I will let coding and billing Irma know about dropping the vaccine claim under and exposure code. [email or web address] Not available 02/21/2021 18:33:13 06/25/2021 [id number] genital herpes: care instructions [email or web address] Not available 06/25/2021 13:39:01 Pt and girlfrien d here to discuss HSV-1. 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 Did not have an oral outbreak at the time but did have a cut on his lip from biting his lip. Girlfriend became symptomatic with painful genital lesions. Pt then also developed genital lesions. Pt went to on Day and got tested (lesions were swabbed) and came back positive for HSV-1 per pt. Both pt and girlfriend have completed a 10-day round of valacyclovir and are currently symptom-free. They have questions about recommendations about ongoing prescription for antiviral meds and when it is typically safe to resume sexual activity Had one cold sore flare up in a year. Usually occurs when he's sleep deprived or when his immune system is low or when he's stressed. A/P: 1) Had a long discussion with patient and girlfriend regarding clinical course of HSV, transmission and treatment 2) Discussed that intercourse is ok if neither partner is having genital lesions but that if one partner has lesions then they need to refrain from intercourse until lesions clear. We discussed condom use to help prevent this. 3) We discussed that suppression treatment may be necessary if he is having several flares ups of either genital or oral HSV yearly. Right now his last cold sore was one year ago and so far he has only had one genital outbreak. I have prescribed valacyclovir for him to take as needed with outbreaks. Rx sent to pharmacy in [place] where he is currently visiting his girlfriend and rx with refills sent to local pharmacy in [place] 4) All questions and concerns answered today. Return to clinic if sx do not begin to improve, worsen, new sx develop, or with any other concerns. 5) Pt agrees with plan and has no further questions Not available 06/26/2021 00:55:27 09/14/2021 [id number] Vaccine Consent [email or web address] Not available 09/14/2021 11:19:04 10/05/2021 [id number] 1. Christian presents for his annual wellness exam. Information made available on the portal regarding the importance of maintaining a healthy weight by eating a diet high in fruits, vegetables and lean proteins. Encouraged exercise at least 30-45 minutes daily for 4-7 days/week. Encouraged stress management and good sleep hygiene. Follow-up in 1 year for wellness exam. Follow-up sooner for any other concerns. 2. He is doing well and has no concerns. 3. He has significantly elevated triglycerides. Consider starting Tricor. [email or web address] Not available 10/06/2021 09:13:11 05/31/2022 [id number] + COVID19 on . Sx are mild but he is traveling for holidays and does not want to infect anyone where he is visiting and is interested in antiviral. Understands that he can have paxlovid rebound sx and will re-test before seeing others and plans to wear a mask for a full 10 days from sx onset. Follow updated CDC guidelines and monitor for new or worsening symptoms very closely: 1. If you test positive for COVID19, regardless of vaccination status: - Stay home for 5 days. -If you have no symptoms or your symptoms are resolving after 5 days, you can leave your house. -Continue to wear a mask around others for 5 additional days. If you have a fever, continue to stay home until your fever resolves. You must remain fever-free without the use of medications for at least 24 hours prior to re-entering public. 2. If you were exposed to someone with COVID19: If you: Have been boosted OR completed primary two-shot series of Pfizer or Moderna vaccine within the last 6 months OR completed the primary series of J&J vaccine within the last 2 months: -Wear a mask around others for 10 days. -Test on Day 5, if possible. PCR testing is best option, but rapid at home test is fine if that is only option. -If you develop symptoms, get a test and stay home. Assume you are positive until test is confirmed negative. If you: Completed primary 2-shot series of Pfizer or Moderna vaccine over 6 months ago and are not boosted OR completed the primary series of J&J over 2 months ago and are not boosted OR are unvaccinated: -Stay home for 5 days. After that, continue to wear a mask around others for 5 additional days. -If you can't quarantine, you must wear a mask for 10 days and be extremely careful. -Test on Day 5, if possible. -If you develop symptoms, get a test and stay home. Assume you are positive until test is confirmed negative. If you have had close contact with ongoing exposure (ie living with someone who is COVID+) and you are fully vaccinated with booster: -Get tested 5-7 days after their first exposure. A person with COVID19 is considered infectious starting 2 days before they develop symptoms, or 2 days before the date of positive test if they are asymptomatic. -Get tested again 5-7 days after the end of isolation for the infected person. -Wear a mask in public for 14 days following the end of isolation for the infected person, as there is still a chance that symptoms can develop up to two weeks after exposure. Call our office immediately with any new or worsening symptoms including SOB, chest discomfort, fever >101F. Treat symptoms with OTC medications. Stay very well hydrated and rest often. [email or web address] Not available 05/31/2022 18:01:03 Reason for Referral None Reported. Results Created Date Observation Date Name Description Value Unit Range Abnormal Flag Note LastModifiedBy Organization Detail LastModifiedTime 10/06/19 22 10/06/2021 CBC WITH DIFFE RENTI AL/PL ATELE T WBC 5.3 x10e3 /uL 3.4-10 .8 Not Available [facility] ([facility]) [address] [place], [address], 10/06/2021 08:12:57 10/06/19 22 10/06/2021 CBC WITH DIFFE RENTI AL/PL ATELE T RBC 4.97 x10e6 /uL 4.14-5 .80 Not Available [facility] ([facility]) [address] [place], [address], 10/06/2021 08:12:57 10/06/19 22 10/06/2021 CBC WITH DIFFE RENTI AL/PL ATELE T hemoglobin 15.7 g/dL 13.0-1 7.7 Not Available [facility] ([facility]) [address] [facility], [place], [address], 10/06/2021 08:12:57 10/06/19 22 10/06/2021 CBC WITH DIFFE RENTI AL/PL ATELE T hematocrit 45.5 % 37.5-5 1.0 Not Available [facility] ([facility]) [address] [facility], [place], [address], 10/06/2021 08:12:57 10/06/19 22 10/06/2021 CBC WITH DIFFE RENTI AL/PL ATELE T MCV 92 fL 79-97 Not Available [facility] ([facility]) [address] [facility], [place], [address], 10/06/2021 08:12:57 10/06/19 22 10/06/2021 CBC WITH DIFFE RENTI AL/PL ATELE T MCH 31.6 pg 26.6-3 3.0 Not Available [facility] ([facility]) [address] [place], [address], 10/06/2021 08:12:57 10/06/19 22 10/06/2021 CBC WITH DIFFE RENTI AL/PL ATELE T MCHC 34.5 g/dL 31.5-3 5.7 Not Available [facility] ([facility]) [address] [place], [address], 10/06/2021 08:12:57 10/06/19 22 10/06/2021 CBC WITH DIFFE RENTI AL/PL ATELE T RDW 12.9 % 11.6-1 5.4 Not Available [facility] ([facility]) [address] [place], [address], 10/06/2021 08:12:57 10/06/19 22 10/06/2021 CBC WITH DIFFE RENTI AL/PL ATELE T platelets 226 x10e3 /uL 150-45 0 Not Available [facility] ([facility]) [address], [place], [address], 10/06/2021 08:12:57 10/06/19 22 10/06/2021 CBC WITH DIFFE RENTI AL/PL ATELE T neutrophils 58 % not estab. Not Available [facility] ([facility]) [address] [facility], [place], [address], 10/06/2021 08:12:57 10/06/19 22 10/06/2021 CBC WITH DIFFE RENTI AL/PL ATELE T lymphs 29 % not estab. Not Available [facility] ([facility]) [address] [facility], [place], [address], 10/06/2021 08:12:57 10/06/19 22 10/06/2021 CBC WITH DIFFE RENTI AL/PL ATELE T monocytes 12 % not estab. Not Available [facility] ([facility]) [address] [facility], [place], [address], 10/06/2021 08:12:57 10/06/19 22 10/06/2021 CBC WITH DIFFE RENTI AL/PL ATELE T eos 1 % not estab. Not Available [facility] ([facility]) [address] [facility], [place], [address], 10/06/2021 08:12:57 10/06/1910/06/2021 CBC WITH DIFFE RENTI AL/PL ATELE T basos 0 % not estab. Not Available [facility] (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) [address] [facility], [place], [address], 10/06/2021 08:12:57 10/06/19 22 10/06/2021 CBC WITH DIFFE RENTI AL/PL ATELE T neutrophils (absolute) 3.0 x10e3 /uL 1.4-7. 0 Not Available [facility] ([facility]) [address] [place], [address], 10/06/2021 08:12:57 10/06/19 22 10/06/2021 CBC WITH DIFFE RENTI AL/PL ATELE T lymphs (absolute) 1.6 x10e3 /uL 0.7-3. 1 Not Available [facility] ([facility]) [address] [place], [address], 10/06/2021 08:12:57 10/06/19 22 10/06/2021 CBC WITH DIFFE RENTI AL/PL ATELE T monocytes(ab solute) 0.7 x10e3 /uL 0.1-0. 9 Not Available [facility] ([facility]) [address] [place], [address], 10/06/2021 08:12:57 10/06/19 22 10/06/2021 CBC WITH DIFFE RENTI AL/PL ATELE T eos (absolute) 0.1 x10e3 /uL 0.0-0. 4 Not Available [facility] ([facility]) [address] [place], [address], 10/06/2021 08:12:57 10/06/19 22 10/06/2021 CBC WITH DIFFE RENTI AL/PL ATELE T baso (absolute) 0.0 x10e3 /uL 0.0-0. 2 Not Available [facility] ([facility]) [address] [place], [address], 10/06/2021 08:12:57 10/06/19 22 10/06/2021 CBC WITH DIFFE RENTI AL/PL ATELE T immature granulocytes 0 % not estab. Not Available [facility] ([facility]) [address] [place], [address], 10/06/2021 08:12:57 10/06/19 22 10/06/2021 CBC WITH DIFFE RENTI AL/PL ATELE T immature grans (abs) 0.0 x10e3 /uL 0.0-0. 1 Not Available [facility] (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) [address] [facility], [place], [address], 10/06/2021 08:12:57 10/06/19 22 10/06/2021 CBC WITH DIFFE RENTI AL/PL ATELE T hematology comments: PROFESSOR OF FLORICULTURE Not Available [facility] ([facility]) [address] [facility], [place], [address], 10/06/2021 08:12:57 10/06/19 22 10/06/2021 COMP. METAB OLIC PANEL (14) glucose 106 mg/dL 65-99 above high normal Not Available [facility] ([facility]) [address] [facility], [place], [address], 10/06/2021 08:12:59 10/06/19 22 10/06/2021 COMP. METAB OLIC PANEL (14) BUN 16 mg/dL 6-24 Not Available [facility] ([facility]) [address] [facility], [place], [address], 10/06/2021 08:12:59 10/06/19 22 10/06/2021 COMP. METAB OLIC PANEL (14) creatinine 1.08 mg/dL 0.76-1 .27 Not Available [facility] ([facility]) [address] [facility], [place], [address], 10/06/2021 08:12:59 10/06/19 22 10/06/2021 COMP. METAB OLIC PANEL (14) eGFR 82 mL/mi n/1.7 3 >59 Not Available [facility] ([facility]) [address] [facility], [place], [address], 10/06/2021 08:12:59 10/06/19 22 10/06/2021 COMP. METAB OLIC PANEL (14) BUN/creatini ne ratio 15 9-20 Not Available [facility] ([facility]) [address] [facility], [place], [address], 10/06/2021 08:12:59 10/06/19 22 10/06/2021 COMP. METAB OLIC PANEL (14) sodium 142 mmol/ L 134-14 4 Not Available [facility] ([facility]) [address] [facility], [place], [address], 10/06/2021 08:12:59 10/06/19 22 10/06/2021 COMP. METAB OLIC PANEL (14) potassium 4.1 mmol/ L 3.5-5. 2 Not Available [facility] ([facility]) [address] [facility], [place], [address], 10/06/2021 08:12:59 10/06/19 22 10/06/2021 COMP. METAB OLIC PANEL (14) chloride 104 mmol/ L 96-106 Not Available [facility] ([facility]) [address] [facility], [place], [address], 10/06/2021 08:12:59 10/06/19 22 10/06/2021 COMP. METAB OLIC PANEL (14) carbon dioxide, total 24 mmol/ L 20-29 Not Available [facility] ([facility]) [address] [facility], [place], [address], 10/06/2021 08:12:59 10/06/19 22 10/06/2021 COMP. METAB OLIC PANEL (14) calcium 9.8 mg/dL 8.7-10 .2 Not Available [facility] ([facility]) [address] [facility], [place], [address], 10/06/2021 08:12:59 10/06/19 22 10/06/2021 COMP. METAB OLIC PANEL (14) protein, total 7.0 g/dL 6.0-8. 5 Not Available [facility] ([facility]) [address] [facility], [place], [address], 10/06/2021 08:12:59 10/06/19 22 10/06/2021 COMP. METAB OLIC PANEL (14) albumin 4.5 g/dL 3.8-4. 9 Not Available [facility] ([facility]) [address] [facility], [place], [address], 10/06/2021 08:12:59 10/06/19 22 10/06/2021 COMP. METAB OLIC PANEL (14) globulin, total 2.5 g/dL 1.5-4. 5 Not Available [facility] ([facility]) [address] [facility] [place], [address], 10/06/2021 08:12:59 10/06/19 22 10/06/2021 COMP. METAB OLIC PANEL (14) A/G ratio 1.8 1.2-2. 2 Not Available [facility] ([facility]) [address] [facility] [place], [address], 10/06/2021 08:12:59 10/06/19 22 10/06/2021 COMP. METAB OLIC PANEL (14) bilirubin, total 0.4 mg/dL 0.0-1. 2 Not Available [facility] ([facility]) [address] [facility] [place], [address], 10/06/2021 08:12:59 10/06/19 22 10/06/2021 COMP. METAB OLIC PANEL (14) alkaline phosphatase 78 IU/L 44-121 Not Available [facility] ([facility]) [address] [facility] [place], [address], 10/06/2021 08:12:59 10/06/19 22 10/06/2021 COMP. METAB OLIC PANEL (14) AST (SGOT) 25 IU/L 0-40 Not Available [facility] ([facility]) [address] [facility] [place], [address], 10/06/2021 08:12:59 10/06/19 22 10/06/2021 COMP. METAB OLIC PANEL (14) ALT (SGPT) 30 IU/L 0-44 Not Available [facility] ([facility]) [address] [facility] [place], [address], 10/06/2021 08:12:59 10/06/19 22 10/06/2021 LIPID PANEL W/ CHOL/ HDL RATIO cholesterol, total 241 mg/dL 100-19 9 above high normal Not Available [facility] ([facility]) [address] [place], [address], 10/06/2021 08:13:00 10/06/19 22 10/06/2021 LIPID PANEL W/ CHOL/ HDL RATIO triglyceride s 501 mg/dL 0-149 above high normal Not Available [facility] ([facility]) [address] [place], [address], 10/06/2021 08:13:00 10/06/19 22 10/06/2021 LIPID PANEL W/ CHOL/ HDL RATIO HDL cholesterol 33 mg/dL >39 below low normal Not Available [facility] ([facility]) [address] [place], [address], 10/06/2021 08:13:00 10/06/19 22 10/06/2021 LIPID PANEL W/ CHOL/ HDL RATIO VLDL cholesterol prashant 89 mg/dL 5-40 above high normal Not Available [facility] ([facility]) [address] [place], [address], 10/06/2021 08:13:00 10/06/19 22 10/06/2021 LIPID PANEL W/ CHOL/ HDL RATIO LDL chol calc ([facility]) 119 mg/dL 0-99 above high normal Not Available [facility] (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) [address] [place], [address], 10/06/2021 08:13:00 10/06/1910/06/2021 LIPID PANEL W/ CHOL/ HDL RATIO T. chol/HDL ratio 7.3 ratio 0.0-5. 0 above high normal T. Chol/ HDL Ratio Men Women 1/2 Avg.R isk 3.4 3.3 Avg.R isk 5.0 4.4 2X Avg.R isk 9.6 7.1 3X Avg.R isk 23.4 11.0 Not Available [facility] ([facility]) [address] [place], [address], 10/06/2021 08:13:00 10/06/19 22 10/06/2021 TSH TSH 1.890 uIU/m L 0.450- 4.500 Not Available [facility] ([facility]) [address] [place], [address], 10/06/2021 08:13:01 Result Notes None recorded. Problems Name Problem SNOMED Code Status Onset Date Resolution Date Notes Provider Name and Address Organization Details Recorded Time Otitis media 75353771 Completed 12/25/2015 NICKO Rodriguez [address] [facility], [place], [address] , [place] [facility] 6 15:36:52 Impotence Completed 12/25/2015 NICKO Rodriguez [address] [facility], [place], [address] , [place] [facility] 6 15:36:45 Reduced libido 8301252 Completed 12/25/2015 NICKO Rodriguez [address] [facility],[address], [place], [address] , [place] [facility] 6 16:02:35 Malaise and fatigue 040199351 Completed 12/25/2015 NICKO Rodriguez [address] [facility], [place], [address] , [place] [facility] 6 15:36:36 Impotence of organic origin Active MARYCHUY De La Paz [address] [facility], [address] , [place] [facility] 6 15:45:43 Contusion of face, scalp and neck, excluding eye(s) Completed 12/25/2015 [facility]ICKO Rodriguez [address] [facility] [address], [address] , [place] [facility] 6 15:36:33 Cough 23016827 Completed 05/24/2016 Cassia arrieta, [place] [facility] 6 17:05:23 Contact dermatitis 26673583 Active MARYCHUY De La Paz [address] [facility] [place], [address] , [place] [facility] 6 15:45:43 Chronic maxillary sinusitis 00727560 MARYCHUY Mckay [address] [facility], [address] , [place] [facility] 6 15:45:43 Chronic rhinitis 25687378 MARYCHUY Mckay [address] [facility] [address] [place], [address] , [place] [facility] 6 15:45:43 Gastro-eso phageal reflux disease with esophagiti s 700688834 Active MARYCHUY De La Paz [address] [facility],[address], [place], [address] , [place] [facility] 6 15:45:43 Radial styloid tenosynovi tis 62851347 Completed 12/25/2015 NICKO Rodriguez [address] [facility],[address], [place], [address] , [place] [facility] 6 15:34:40 Acute pharyngiti s 250859223 Completed 12/25/2015 NICKO Rodriguez [address] [facility],[address], [place], [address] , [place] [facility] 6 15:36:42 Neck pain 50254741 Completed 12/25/2015 INCKO Rodriguez [address] [facility], [place], [address] , [place] [facility] 6 15:36:57 Shoulder joint pain 144805046 Completed 12/25/2015 NICKO Rodriguez [address] [facility],[address], [place], [address] , [place] [facility] 6 15:36:30 Acute sinusitis 94658876 Completed 12/25/2015 NICKO Rodriguez [address] [facility],[address], [place], [address] , [place] [facility] 6 15:34:35 Knee pain Completed 12/25/2015 NICKO Rodriguez [address] [facility],[address], [place], [address] , [place] [facility] 6 15:36:39 Plantar fascial fibromatos is 86287573 Active Yin Camara, MARYCHUY [address] [facility] [facility], [place], [address] , [place] [facility] 6 15:45:43 Acute upper respirator y infection of multiple sites Completed 12/25/2015 NICKO Rodriguez [address] [facility] [place], [place], [address] , [place] [facility] 6 15:36:55 Contusion of chest 88325801 Completed 12/25/2015 NICKO Rodriguez [address] [facility], [place], [address] , [place] [facility] 6 15:34:29 Acute bronchitis 13789312 Completed 12/25/2015 NICKO Rodriguez [address] [facility] [place], [place], [address] , [place] [facility] 6 15:34:32 Gastric reflux 864510148 Completed 12/25/2015 NICKO Rodriguez [address] [facility], [place], [address] , [place] [facility] 6 15:36:27 Reduced libido 0373689 Active 2015 NICKO Rodriguez [address] [facility], [place], [address] , [place] [facility] 6 16:02:35 Herpes simplex 13429652 Active 2021 Monique Gimenez null, [place] [facility] 2 13:07:14 Foot pain 03301089 Completed 05/24/2016 Cassia Gibson null, [place] [facility] 6 17:05:26 Hyperlipid emia 32776271 Active Yin Camara, MARYCHUY [address] [facility],[address], [place], [address] , [place] [facility] 15:45:43 Problem Notes None recorded. Procedures Surgical History Date Name Laterality Status Provider Name and Address Organization Details Recorded Time 10/06/19 22 Cholesterol Check completed Lili Ramirez MD [address] [facility],[address], [place], [address], [place] [facility] 10/04/2021 08:58:13 06/01/20 20 Colonoscopy completed Lili Ramirez MD [address] [facility],[address], [place], [address], [place] [facility] 06/13/2020 16:33:20 03/15/20 20 Blood Pressure Check completed Harleen Hess [place] [facility] 03/14/2020 10:48:27 03/15/20 20 Ch[facility] Check [facility] [place] [facility] 03/14/2020 10:48:27 05/27/20 18 Emergency code completed Emilia Motley [place] [facility] 05/27/2018 21:41:14 05/24/20 16 Emergency code completed MARYCHUY De La Paz [address] [facility],[address] [facility], [place], [address], [place] [facility] 05/24/2016 19:05:43 12/21/19 16 Emergency code completed NICKO Rodriguez [address] [facility],[address], [place], [address], [place] [facility] 12/22/2015 01:06:57 07/19/19 16 Emergency code completed MARYCHUY De La Paz [address] [facility],[address], [place], [address], [place] [facility] 07/19/2015 15:46:14 04/19/20 15 Emergency code completed NICKO Rodriguez [address] [facility],[address], [place], [address], [place] [facility] 04/19/2015 23:22:34 12/01/20 14 Emergency code completed Lorelei Champion [place] [facility] 05/16/2014 16:53:13 06/19/19 13 Emergency code completed NICKO Bagley [address] [facility],[address], [place], [address], [place] [facility] 06/21/2012 22:45:19 05/28/20 11 Emergency code completed NICKO Rodriguez [address] [facility],[address], [place], [address], [place] [facility] 05/28/2011 19:34:14 01/17/20 11 Emergency code completed NICKO Rodriguez [address] [facility],[address], [place], [address], [place] [facility] 01/17/2011 22:51:50 02/15/20 05 Colonoscopy completed Mitra Espinosa [place] [facility] 05/19/2012 13:18:01 06/16/18 95 Other completed Mitra Espinosa [place] [facility] 05/19/2012 13:23:02 06/16/18 91 Other completed Mitra Espinosa [place] [facility] 05/19/2012 13:23:02 06/16/18 81 Other completed Mitra Espinosa [place] [facility] 05/19/2012 13:23:02 06/16/18 80 Other completed Mitra Espinosa [place] [facility] 05/19/2012 13:23:02 Imaging Results None recorded. Procedure Notes None recorded. Medical Equipment None Reported. Allergies Allergen ID Allergen Name Allergen Category Reaction Reaction Severity Criticality Documentation Date Start Date Code Code System Note Provider Name and Address Organization Details Recorded Time 97895 Substance with sulfonami de structure and antibacte rial mechanism of action (substanc e) medicatio n rash Not available Not available 01/16/2011 35806 8003 SNOMED Not Available [facility] 1 05:55:17 95550 acetamino phen / hydrocodo ne medicatio n vomiting Not available Not available 05/16/2014 90571 2 RxNorm Leenasandrine arri[place] [facility] 4 16:24:06 Medications Name Sig Start Date Stop Date Status Note LastModified by Organization Details LastModified Time amoxicilli n 500 mg capsule 05/17 completed Not Available Not Available Not Available azithromyc in 250 mg tablet TAKE 2 TABLETS (500 MG) BY ORAL ROUTE ONCE DAILY FOR 1 DAY THEN 1 TABLET (250 MG) BY ORAL ROUTE ONCE DAILY FOR 4 DAYS 05/01 completed Not Available Not Available Not Available benzonatat e 200 mg capsule Take 1 capsule (200 mg) by oral route 3 times per day as needed 12/20 completed Not Available Not Available Not Available valacyclov ir 1 gram tablet Take 1 tablet every 12 hours by oral route for 10 days. active Not Available Not Available No t Available prednisone 20 mg tablet take 3 tablets daily x 3 days then take 2 tablets daily x 3 days then take 1 tablet daily x 3 days active Not Available Not Available No t Available promethazi ne 6.25 mg-codeine 10 mg/5 mL syrup TK 5 TO 10 ML PO Q 6 H NEEDED. NOT TO EXCEED 30 ML IN 24 HOUR 03/23 completed Not Available Not Available Not Available ciprofloxa wilmar 500 mg tablet Take 1 tablet (500 mg) by oral route every 12 hours x 5 days for travelers diarrhea 05/27 completed Not Available Not Available Not Available tramadol 50 mg tablet Take 1 tablet every 6 hours by oral route. 2012 active Not Available Not Available Not Avai lable triamcinol one acetonide 0.1 % topical cream apply to hands and feet in the AM and then cover with cream 2011 active Not Available Not Available Not Avai lable amoxicilli n 500 mg tablet Take 1 tablet (500 mg) by oral route every 12 hours 05/24 completed Not Available Not Available Not Available Guaiatussi n AC 10 mg-100 mg/5 mL oral liquid TAKE 10ML BY MOUTH EVERY 6 HOURS NEEDED active Not Available Not Available No t Available doxycyclin e monohydrat e 100 mg capsule Take 1 capsule twice a day by oral route for 10 days. 12/24 completed Not Available Not Available Not Available triamcinol one acetonide 0.1 % topical ointment apply to hands and feet in the P.M., then cover with thick cream (Cetaphil ) and cover with cotton gloves/so cks 2011 active Not Available Not Available Not Avai lable ranitidine 150 mg tablet Take 1 tablet twice a day by oral route for 30 days. 06/27 completed Not Available Not Available Not Available dexamethas one 4 mg tablet Take 1-2 tablet(s) QAM with food for up to five days 12/20 completed Not Available Not Available Not Available mupirocin 2 % topical ointment 10/05 completed Not Available Not Available Not Available Viagra 100 mg tablet TAKE 1 TO BY MOUTH 30 TO 60 MINUTES PRIOR TO INTERCOUS E - needs office visit 08/11 completed Not Available Not Available Not Available albuterol sulfate HFA 90 mcg/actuat ion aerosol inhaler Inhale 2 puffs every 4 hours by inhalatio n route. 10/12 completed used for cough Not Available Not Available Not Available AmLactin 12 % lotion Apply by topical route twice daily 2011 active Not Available Not Available Not Avai lable Tussionex Pennkineti c ER 10 mg-8 mg/5 mL suspension ,extended release Take 5 mL every 12 hours by oral route. 10/12 completed Not Available Not Available Not Available azithromyc in 500 mg tablet Take 1 tablet (500 mg) by oral route once daily for 3 days 12/14 completed Not Available Not Available Not Available tadalafil 20 mg tablet 1/2 - 1 tab po 30-60 minutes before intercour se 2020 active Not Available Not Available Not Avai lable Suprep Bowel Prep Kit 17.5 gram-3.13 gram-1.6 gram oral solution USE DIRECTED BY 08/11 completed Not Available Not Available Not Available Paxlovid 300 mg (150 mg x 2)-100 mg tablets in a dose pack nirmatrel vir 150mg-jocelyn e 2 tablets po twice daily with ritonavir 100mg 1 tablet po twice daily x 5 days: do not use with tadalafil active Not Available Not Available No t Available Vitals Date Recorded Body height Body mass index (BMI) Body weight Respiratory rate Body temperature Oxygen saturation Oxygen saturation in Arterial blood by Pulse oximetry Heart rate Systolic And Diastolic Provider Name and Address Organization Details Last Updated DateTime 2 167.64 cm 28.4 kg/m2 30327.9 8 g 16.02 /min 98.1 [degF] 95 % 95 % 104 /min 125/89 mm[Hg] Bere Nikolas [place] [facility] 2 17:56:48 Date Recorded Body temperature Provider Name a nd Address Organization Details Last Updated DateTime 05/31/2022 98.1 [degF] Jatinder Archuletaro [place] [facility] 05/31/2022 17:39:02 Social History Question Answer Notes LastModified by Organizat ion Details LastModified Time Tobacco Smoking Status Never Smoker Monique arri[place] [facility] 06/25/2021 13:08:01 Do You Have An Advance Directive? No [email or web address] Information not available 10/05/2021 Do You Wear A Helmet When Biking? Yes Information not available 10/05/2021 Are You Blind Or Do You Have Difficulty Seeing? Yes Wears Glasses Information not available 06/25/2021 What Is Your Level Of Caffeine Consumption? Moderate Tea Qd 32 Oz Information not available 06/25/2021 How Much Tobacco Do You Chew? None Information not available 05/09/2011 In The 14 Days Before Symptom Onset, Have You Had Close Contact With A Laboratory-confir med COVID-19 While That Case Was Ill? No Information not available 06/25/2021 In The 14 Days Before Symptom Onset, Have You Had Close Contact With A Person Who Is Under Investigation For COVID-19 While That Person Was Ill? No Information not available 06/25/2021 Have You Been To An Area Known To Be High Risk For COVID-19? No Information not available 06/25/2021 Are You Deaf Or Do You Have Serious Difficulty Hearing? No Information not available 06/25/2021 What Type Of Diet Are You Following? VEGETARIAN No Dairy Or Gluten, 16 Hours Fasting [email or web address] Information not available 03/15/2020 Education Post Graduate Information not available 06/25/2021 How Many Days In The Past Year Have You Had A Heavy Drinking Consumption (4+ Female, 5+ Male)? 0 [email or web address] Information no t available 10/20/2020 In The Past 12 Months, Did You Ever Eat Less Than You [place] You Should Because There Wasn't Enough Money For Food? No [email or web address] Information not available 10/20/2020 Are You Worried That In The Next 2 Months, You May Not Have Stable Housing? No [email or web address] Information not available 10/20/2020 Do You Ever Need Help Reading Patient Education Material? No [email or web address] Information not available 10/20/2020 Are You Afraid You Might Be Hurt In Your Apartment Or House? No [email or web address] Information not available 10/20/2020 In The Last 12 Months, Have You Ever Had To Go Without Health Care Because You Didn't Have A Way To Get There? No Information not available 10/20/2020 Marital Status Single Informatio n not available 06/25/2021 What Was The Date Of Your Most Recent Tobacco Screening? 10/05/2021 [email or web address] Information not available 10/05/2021 How Many Children Do You Have? 0 [email or web address] Information not available 04/19/2015 What Is Your Relationship Status? Single [email or web address] Information not available 10/05/2021 Do You Use Your Seat Belt Or Car Seat Routinely? Yes Information not available 05/19/2012 Seat Belts Used Routinely Yes Information not available 06/25/2021 Smoke Alarm In Home Yes Information not available 06/25/2021 Do You Have Smoke And Carbon Monoxide Detectors In Your Home? Yes Information not available 05/19/2012 Are You Passively Exposed To Smoke? No Information no t available 05/19/2012 Are There Any Smokers In Your House? No [email or web address] Information not available 10/05/2021 How Much Tobacco Do You Smoke? No [email or web address] Information not available 05/09/2011 General Stress Level Low Information not available 06/25/2021 Do You Use Sunscreen Routinely? Yes Information not available 06/25/2021 How Many Years Have You Smoked Tobacco? 0 Information not available 05/19/2012 Sex: Male Functional Status Question Answer Note LastModified by Organizat ion Details LastModified Time Do you use any illicit or recreational drugs? No [email or web address] Information not available 10/05/2021 What is your level of alcohol consumption? Occasional once a month [email or web address] Information not available 10/05/2021 Do you or have you ever used smokeless tobacco? Never used [email or web address] tobacco Information not available 06/25/2021 What is your occupation? [employer] Information not available 05/19/2012 Do you or have you ever used e-cigarettes or vape? Never used electronic cigarettes Information not available 06/25/2021 What is your exercise level? Occasional once a week. walking [email or web address] Information not available 10/05/2021 Mental Status None recorded. Family History Relationship Description Onset Age of this Age Resolved Age Notes LastModified by Organization Details LastModified Time Father Hypertensive disorder [email or web address] Not available 12/14 15:39:40 Father Malignant tumor of colon 60 [email or web address] Not available 12/14 15:39:35 Father Coronary artery bypass grafts x 2 79 Not available 06/25 13:08:00 Father Coronary arterioscler osis 79 [email or web address] Not available 2019 15:25:48 Mother Diabetes mellitus [email or web address] Not available 2019 15:25:20 Medical History Condition Response Coronary Artery Disease N Gout N Eye or Vision Disorder Y COPD N Hypothyroidism N Mental Health Disorder N Headaches/Migraines N Infectious Disease Disorder N STD's N Serious Illness or Injuries N Stroke N Anxiety/Depression/Stress Disorder N Dermatologic Disorder Y Neurologic Disorder N Hepatic/Liver Disorder N Fibromyalgia N Endocrine Disorder N Gastrointestinal Disorder N Hospitalizations N Ear/Nose/Throat or Hearing Disorder N Orthopedic Disorder N Cancer/Oncology Disorder N Anemia N Insomnia/Sleep Disorder N Hematologic Disorder N Alcohol/Substance Abuse Disorder N Rheumatologic Disorder N Diabetes N DVT/Pulmonary Embolus N Seizures/Epilepsy N Allergies/Immunology Disorder Y Hyperlipidemia N Asthma N Urinary or Renal Disorder N Renal Insufficiency/Renal Failure N GERD/Reflux N Dizziness/Vertigo N Hypertension N Immunizations Vaccine Type Date Status Note Provider Nam e and Address Organization Details Recorded Time Tdap 4 completed Yin Camara, [facility] [address] [facility], [place], [address], [place] [facility] 03/23/2018 10:53:54 Influenza, split virus, quadrivalent, preservative 8 completed NICKO Rodriguez [address] [facility],[address] [facility], [place], [address], [place] [facility] 05/31/2022 17:49:02 Hep A, adult 7 completed NICKO Rodriguez [address] [facility],[address] [facility], [place], [address], [place] [facility] 05/31/2022 17:49:02 Hep B, adult 7 completed NICKO Rodriguez [address] [facility],[address] [facility], [place], [address], [place] [facility] 05/31/2022 17:49:02 COVID-19, mRNA, LNP-S, PF, 100 mcg/0.5mL dose or 50 mcg/0.25mL dose 1 completed Kaleigh arri[place] [facility] 10/20/2020 16:55:09 COVID-19, mRNA, LNP-S, PF, 100 mcg/0.5mL dose or 50 mcg/0.25mL dose 1 completed Kaleigh arri[place] [facility] 10/20/2020 16:55:16 COVID-19, mRNA, LNP-S, PF, 100 mcg/0.5mL dose or 50 mcg/0.25mL dose 1 completed NICKO Rodriguez [address] [facility],[address], [place], [address], [place] [facility] 05/31/2022 17:49:02 MMR 0 completed NICKO Rodriguez [address] [facility],[address], [place], [address], [place] [facility] 05/31/2022 17:49:02 zoster recombinant 0 completed NICKO SARGENT [address] [facility],[address] [address], [place], [address], [place] [facility] 03/15/2020 15:49:46 zoster recombinant 1 completed Lili Ramirez MD [address] [facility] [address], [place], [address], [place] [facility] 06/27/2020 12:47:11 HPV9 1 completed Lili Ramirez MD [address] [place] [address],[address] [place] [address], [place], [address], [place] [facility] 10/26/2020 11:40:37 HPV9 1 completed Lili Ramirez MD [address] [place] [address],[place] [address], [place], [address], [place] [facility] 12/26/2020 17:43:35 COVID-19, mRNA, LNP-S, PF, 100 mcg/0.5mL dose or 50 mcg/0.25mL dose 2 completed Lili Ramirez MD [address] [address], [place], [address], [place] [facility] 09/14/2021 11:19:04 Past Encounters Encounter ID Performer Location Encounter Start Date Encounter Closed Date Diagnosis/Indication Diagnosis SNOMED-CT Code Diagnosis ICD10 Code Diagnosis Note [id number] NICKO Rodriguez [facility] [address] [facility] [place] [address] 01/16/2011 18:13:36 01/16/2011 19:07:31 [id number] Lili Ramirez MD [facility] [address] [facility] [place] [address] 05/14/2011 15:21:54 05/14/2011 16:09:34 [id number] NICKO Rodriguez [facility] [address] [facility] [place] [address] 05/28/2011 18:33:31 05/28/2011 19:01:23 [id number] Lili Ramirez MD [facility] [address] [place] [address] 10/18/2011 13:01:28 10/18/2011 13:58:19 [id number] Lili Ramirez MD [facility] [address] [place] [address] 05/19/2012 13:16:12 05/19/2012 14:05:27 [id number] NICKO Bagley [facility] [address] [place] [address] 06/19/2012 18:28:11 06/19/2012 18:51:55 [id number] NICKO Rodriguez [facility] [address] [place] [address] 4 12/14/2012 17:03:55 12/14/2012 18:13:57 [id number] Lili Ramirez MD [facility] [address] [place] [address] 4 10/18/2013 12:00:48 10/19/2013 03:47:29 Acute upper respiratory infection of multiple sites 11302823 [id number] Lisette Bullard MD [facility] [address] [place] [address] 01/28/2014 12:50:20 01/30/2014 03:48:07 Adult health examination 951051381 Finding of body mass index 625444739 Exercises education, guidance, and counseling 505639796 Family his tory of cancer of colon 521428775 Foot pain 86530101 [id number] Moraima Leija RD [facility] [address] [place] [id number] 4 02/04/2014 16:29:06 02/10/2014 03:48:12 Hyperlipidemia 79396269 [id number] Lili Ramirez MD [facility] [address] [place] [address] 4 05/16/2014 16:13:06 05/19/2014 03:46:27 Otitis media 85128924 [id number] Lisette Bullard MD [address] [address] 05/24/2014 15:19:39 05/25/2014 15:30:35 Impotence 755707952 Reduced libido 8086516 Malaise and fatigue 708420934 [id number] Lili Ramirez MD [address] [address] 04/19/2015 16:36:18 04/19/2015 23:23:12 Acute sinusitis 04668814 J01.90 Cough 17197374 R05 [id number] MARYCHUY De La Paz [address] [address] 07/19/2015 15:33:37 07/19/2015 16:06:25 Acute upper respiratory infection of multiple sites 28067140 J06.9 Cough 42980945 R05 Gastric reflux 628708401 K21.9 [id number] Lisette Bullard MD [address] [address] 12/21/2015 18:27:20 12/21/2015 23:11:12 Cough 15555464 R05 Acute pharyngitis 888653 003 J02.9 Acute sinusitis 26772323 J01.90 Impotence 251197607 N52. 9 [id number] Lisette Bullard MD [address] [address] 12/25/2015 15:10:34 12/26/2015 14:45:42 Adult health examination 763884722 Z00.00 Finding of body mass index 408915215 Z68.27 Exercises education, guidance, and counseling 354920106 Z71.89 Cough 93517129 R05 Increased frequency of urination 181546109 R35.0 Injury of toe 251405912 S99.921D S99.921S Reduced libido 8384548 R 68.82 Screening for malignant neoplasm of colon 804202039 Z12.11 [id number] Lisette Bullard MD [facility] [address] [address] 05/02/2016 13:01:33 05/02/2016 14:55:57 Gastro-esophageal reflux disease with esophagitis 342789619 K21.0 Chronic rhinitis 9286361 6 J31.0 Increased frequency of urination 186276983 R35.0 Slowing of urinary stream 00057651 R39.12 [id number] Lili Ramirez MD [facility] [address] [address] 05/24/2016 16:59:14 05/24/2016 19:16:51 Acute upper respiratory infection of multiple sites 56442254 J06.9 Cough 68348583 R05 Increased frequency of urination 465693516 R35.0 [id number] Lisette Bullard MD [facility] [address] [address] 03/23/2018 10:32:07 03/23/2018 12:27:29 Exposure to communicable disease 469043640 Z20.9 Traveler's diarrhea 1184 0006 Z20.01 [id number] Lili Ramirez MD [facility] [address] [address] 05/27/2018 16:15:07 05/27/2018 21:42:32 Congestion of nasal sinus 76767724 R09.81 Cough 49378397 R05 [id number] Lili Ramirez MD [facility] [address] [address] 03/15/2020 15:02:34 03/16/2020 21:45:11 Adult health examination 824926224 Z00.00 Finding of body mass index 643558439 Z68.25 Screening for malignant neoplasm of colon 371432509 Z12.11 Exercises education, guidance, and counseling 755918548 Z71.89 Varicella vaccination 68 009256 Z23 Snoring symptoms 3106351 00 R06.83 Pain of to e of right foot 2419986093 02428 M79.674 Chronic rhinitis 1285595 6 J31.0 [id number] NURSE SCHEDULE [address] [address] 4 06/27/2020 11:59:15 06/27/2020 12:10:15 Varicella vaccination 46934665 Z23 [id number] Lisette Bullard MD [address] [address] 08/11/2020 15:19:54 08/14/2020 19:47:16 Primary erectile dysfunction 197033595 N52.9 Nasal congestion 4495592 0 R09.81 [id number] Lili Ramirez MD [address] [address] 10/20/2020 16:35:24 10/23/2020 11:00:07 Exposure to communicable disease 231143170 Z20.9 Primary er ectile dysfunction 491803572 N52.9 [id number] NURSE SCHEDULE [address] [address] 10/26/2020 11:11:40 10/26/2020 11:41:21 Administration of viral vaccine 86534532 Z23 Patient paid $200 towards the cost of this vaccine if insurance denies it. [id number] NURSE SCHEDULE [address] [address] 12/26/2020 17:00:43 12/26/2020 17:43:59 Administration of viral vaccine 92938931 Z23 Patient paid $200 towards the cost of this vaccine if insurance denies it. [id number] Lili Ramirez MD [address] [address] 02/16/2021 13:04:00 02/21/2021 21:15:24 Exposure to communicable disease 282486123 Z20.9 Exposure to HPV by g/f who has tested positive for HPV. [id number] Lili Ramirez MD [address] [address] 06/25/2021 13:07:44 06/26/2021 16:32:15 Genital herpes simplex 62969916 A60.9 [id number] VACCINE VACCINE [address] [address] 09/14/2021 10:32:28 09/14/2021 11:38:56 Administration of SARS-CoV-2 antigen vaccine 939086702 Z23 [id number] Lili Ramirez MD [address] [address] 10/05/2021 17:45:05 10/08/2021 10:31:16 Adult health examination 495759955 Z00.00 Finding of body mass index 227690796 Z68.24 Screening for malignant neoplasm of colon 532887139 Z12.11 Colonoscop y 06/01/2020 - repeat 7 years Exercises education, guidance, and counseling 982113511 Z71.89 Depression screening 171 422661 Z13.31 Chronic ma xillary sinusitis 03566058 J32.0 Chronic rhinitis 5612830 6 J31.0 Gastro-eso phageal reflux disease with esophagitis 717170188 K21.00 Hyperlipidemia 81757756 E78.5 [id number] Lisette Bullard MD [facility] [address] [address] 05/31/2022 17:33:09 06/03/2022 19:50:22 Coronavirus infection 436986338 U07.1 Exposure t o coronavirus infection 750085951 Z20.828 Due to the current coronaviru s pandemic, visit was accomplish ed via telehealth due to concerns regarding patient's possible COVID-19 exposure in the community. Health Concerns Section Related Observation LastModified by Organization Detai ls LastModified Time None Recorded Concern Status LastModified by Organization Details LastModified Time None Recorded Advance Directives Directive N: Payers Insurance Date Sequence Insurance Name Policy Number Policy De León Covered Member ID De León Member ID Guarantor Name 05/30/2022 1 [facility] [id number] Breezy Neil [id number] Breezy Neil 06/25/2021 [employer] Breezy Trejo 06/25/2021 [employer] [id number] Breezy Trejo Notes Date Note Type Note Provider Name and Address Organization Details Recorded Time 02/16/2021 text/html Sexually Transmi tted Infection-MaleReporte d bypatient.Onset/Timin g:No current symptoms Associated Symptoms:no abdominal pain; no anal warts; no back pain; no chills; no constipation; no diarrhea; no dribbling; no dysuria; no emptying; no fever; no frequency; no groin pain; no hematuria; no nausea; no nocturia; no odor; no painful intercourse; no penile blisters; no penile rash; no penile warts; no perineum warts; no pruritus; no straining stream; no stress incontinence; no temperature; no urethral discharge; no urethral itch; no urgency; no urge incontinence; no vomiting; no weight lossNotes:Christian presents today because his current sexual partner was recently diagnosed with HPV on a pap smear. He received the HPV vaccines. Has 1 more shot due. Insurance wouldn't cover the vaccine as prevention, but would cover it for a condition. He'd like it re-submitted for billing considered scientifically recommended for his Scientific evidence that the medication is effective for his condition. Basically since there's no test for HPV for men he should prevent with the vaccine. Maybe use an Exposure code. Is his current balance correct? He paid $200 out of pocket at the 10/26/20 visit. Has current balance that doesn't reflect the $200 payment on 10/26/2020. NICKO Bagley [address] [facility],[address] [facility], [place], [id number], [place] [facility] 02/21/2021 18:33:43 06/25/2021 text/html Pt and girlfrien d here to discuss HSV-1. 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 Did not have an oral outbreak at the time but did have a cut on his lip from biting his lip. Girlfriend became symptomatic with painful genital lesions. Pt then also developed genital lesions. Pt went to on 's Day and got tested (lesions were swabbed) and came back positive for HSV-1 per pt. Both pt and girlfriend have completed a 10-day round of valacyclovir and are currently symptom-free. They have questions about recommendations about ongoing prescription for antiviral meds and when it is typically safe to resume sexual activity Had one cold sore flare up in a year. Usually occurs when he's sleep deprived or when his immune system is low or when he's stressed. Senia [place], [place] [facility] 06/26/2021 00:55:55 10/05/2021 text/html Sleep apnea / SnoringReported bypatient.Quality:no hyponasal speech;loud snoring;witnessed apnea;frequent breathing through the mouth Severity:no pain; no fever Location:no enlarged tonsils;nasal passage blockage Context:no shift work; not currently taking medication to help sleep; no recent weight gain; no recent upper respiratory infection; no recent sick contacts Associated Symptoms:no awakening at night short of breath; no suddenly falling asleep during the dayHer[facility] Care - Male ExamReported bypatient.General Healthfeeling fine; good quality of life; hx of chronic cough, worse at night, but it has improved greatly with diet changes Marital Statussingle Social Historyoccupation; number of children 0 Nutritionnormal diet; diet: nutritious and satisfying; eats mostly healthy diet; vegetarian (gluten free and dairy free) immunizationslast tetanus (2012) Exercise historynot exercising regularly now, has been working on diet changes and plans to start exercising next sleepamount of sleep (8 6-7 in 24 hours) Health habitslast colonoscopy (2004); no smokers in home; preventive health: sun protection: sunscreen; preventive health: dental hygiene: seeing a dentist: regularly; 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 medical 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: by an line cook; needs eye exam Safety:preventive health: personal protective equipment: seatbelts; smoke detector in home; CO detector in home Genitourinary symptoms:no changes in urinary habits: smaller urine stream; no changes in urinary habits: delays in starting (hesitancy); no changes in urinary habits: feelings of urgency; no change in urine volume; no impotence; normal erection; morning erections Other Symptomsno bowel/bladder changes; no chest pain; no calf pain with exertion; no chest tightness or heavy pressure; no constipation; no cough (prior chronic cough but it is resolved); no diarrhea; no dizziness; no dysuria; no earache; no edema; no fever; no headache; no hematuria; no irritation of the eyes; no lightheadedness; no muscle aches: generalized (myalgias); no nausea; no orthopnea/PND; no palpitations; no sinus pain; no shortness of breath; no swollen glands; no urinary frequency; no vomiting; no weakness; no wheezing;nasal congestion(chronic);s ore thorat(x 1 weeks)Notes:R great toe doesn't dorsiflex all the way since a running injury in his foot in 2008. Patient is here for wellness exam. He has family history of colon cancer (father). Had colonoscopy in 2004, but hasn't had repeat. He also has chronic nasal congestion. He started allergy shots which help slightly. He also noticed improvement with diet changes. He was given ENT referral in the past, but did not go to them, he would like referral. He does snore and family members have told him he sometimes holds his breath when he sleeps. Also with old injury of his right great toe. It is bothering him when he is exercising. No recent injury. Lili Ramirez MD [address] [facility],[address], [place], [address], [place] [facility] 10/06/2021 09:13:39 05/31/2022 text/html COVID-19 Symptom s MainReported bypatient.COVID-19 Signs and Symptomsnew cough; no fever; no shortness of breath (dyspnea); no muscle pain; no headache;new sore throat; no loss of taste/smell; no fatigue; no vomiting; no diarrhea; no nausea; no runny nose Contacts and Exposurereside in or traveled to areas where widespread community transmission has been reported Quality:dry cough Severity:mild Duration:symptoms lasting 2 days Onset/Timing:date of symptoms onset: (05/28 - 05/29) Associated Symptoms:no sputum production; no wheezing; no body aches; no change in mental status; no hypotension; no tachycardia Prior Labs and ImagingCOVID-19 nasopharyngeal swab Suitability of residential settingpatient does have caregiver at homeNotes:Started to have mild ST two days ago (05/29/22) and got PCR test that is positive from 05/30 and also home test on 05/30 was positive. Denies body aches, fever, JACOBO, chills, SOB, wheezing. Mild cough and ST. NICKO Rodriguez [address] [facility],[address], [place], [id number], [place] [facility] 05/31/2022 18:01:35
== END 2024-12-23 16:30 | disposition home or self-care (01) ==
LOC: HO.HUSH 15:34
PROVIDERS: PCP Internal Medicine; Visit Provider Nurse Practitioner Family
DX: N52.9 Male erectile dysfunction, unspecified (principal); R68.82 Decreased libido; Z13.9 Encounter for screening, unspecified
CPT/HCPCS: 99213

== ENCOUNTER → 2024-12-23 15:34 | Outpatient (BNVA) | payer OTHER, SELFPAY | PROVIDERS: PCP Internal Medicine; Visit Provider Nurse Practitioner Family | DX: R68.82 Decreased libido (principal) | CPT/HCPCS: 81003 ==